=== PATIENT | male | born 1955 ===

== ENCOUNTER 2016-10-22 21:46 | Emergency (ER) | payer MEDICARE, OTHER ==
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
== END 2016-10-22 23:40 | disposition expired ==
LOC: GACC 21:46

== ENCOUNTER → 2016-10-22 | Outpatient (CLI) | payer MEDICARE, OTHER | END | disposition disaster alternative care site (69) | LOC: GAMB 21:26 | DX: I46.9 Cardiac arrest, cause unspecified (principal); I49.9 Cardiac arrhythmia, unspecified; M31.4 Aortic arch syndrome [Takayasu]; I49.01 Ventricular fibrillation; R06.81 Apnea, not elsewhere classified; V49.9XXA Car occupant (driver) (passenger) injured in unspecified traffic accident, initial encounter | CPT/HCPCS: A0422; A0425; A0433; J0171; J7030 ==